=== PATIENT | male | born 1995 ===

== ENCOUNTER 2023-02-18 06:48 | Emergency (ER) | payer SELFPAY ==
[2023-02-18 07:53] LABS: Absolute Lymphocytes (CBC) 1.8 K/uL (0.7-4.9); Hematocrit 46.7 % (39.6-49.0); Lymphocytes % 27.1 % (15.3-44.8); MCV 82.4 fL (80-100); MPV 6.6 fL (7.6-11.3); RBC Red Blood Cell Count 5.67 M/uL (4.33-5.43)
--- NOTE | 2023-02-18 08:00 | RAD REPORT ---
EXAM DESCRIPTION: CT - Head Brain Wo Cont - 02/18/2023 7:40 am CLINICAL HISTORY: Headache COMPARISON: none TECHNIQUE: Computed axial tomography of the head was obtained. IV contrast was not requested. All CT scans are performed using dose optimization technique as appropriate and may include automated exposure control or mA/KV adjustment according to patient size. FINDINGS: An intracranial bleed is not seen The ventricles are normal in caliber No significant hypodense areas within the brain visualized No extra-axial fluid collection is noted. Fluid within the sinuses/ mastoids is not seen IMPRESSION: No acute intracranial abnormality is seen If patient's symptoms persist MRI of the brain would be recommended
--- NOTE | 2023-02-18 08:08 | RAD REPORT ---
EXAM DESCRIPTION: Jaspreet Angio02/18/2023 7:40 am CLINICAL HISTORY: Headache, neck pain and nausea COMPARISON: None TECHNIQUE: 95 cc Isovue 370 was administered intravenously. 3D MIP reconstruction performed All CT scans are performed using dose optimization technique as appropriate and may include automated exposure control or mA/KV adjustment according to patient size. FINDINGS: Poor opacification the right subclavian artery Common carotid, internal carotid and external carotid arteries normal caliber. Vertebral arteries normal caliber No dissection. No significant stenosis IMPRESSION: Poor opacification right subclavian artery. It is uncertain if this is due to technical factors and is not significant or if there is pathology. It is recommended that the patient have an u ltrasound of right subclavian artery for further evaluation Normal carotid and vertebral arteries NASCET criteria used. Mild 0-49% stenosis Moderate 50-69% stenosis Severe 70-99% stenosis
[2023-02-18 08:10] LABS: Potassium 4.2 mEq/L (3.5-5.1)
--- NOTE | 2023-02-18 08:10 | RAD REPORT ---
EXAM DESCRIPTION: CTHead angio02/18/2023 7:40 am CLINICAL HISTORY: Headache, neck pain and nausea COMPARISON: None TECHNIQUE: 95 cc Isovue [address] angiogram of the head was obtained. 3D MIPS reconstruction performed. All CT scans are performed using dose optimization technique as appropriate and may include automated exposure control or mA/KV adjustment according to patient size. FINDINGS: The basilar, internal carotid, anterior cerebral, middle cerebral and posterior cerebral a rteries are normal caliber An aneurysm is not seen A significant stenosis is not noted. IMPRESSION: Unremarkable exam
[2023-02-18 08:21] LABS: Protime INR 1.01
[2023-02-18] MEDS ORDERED: NA CHLORIDE 0.9% 1,000 ML ONE (08:35)
[2023-02-18] MEDS ORDERED: dexAMETHasone 10 MG/ML VIAL ONE (08:35)
[2023-02-18] MEDS ORDERED: KETOROLAC 30 MG/ML INJ ONE (08:35)
--- NOTE | 2023-02-18 09:21 | RAD REPORT ---
EXAM DESCRIPTION: USUpper Ext Artery Uni Bil02/18/2023 8:50 am CLINICAL HISTORY: Abnormal radiologic exam COMPARISON: CT angiogram February 18, 2023 FINDINGS: Right subclavian artery demonstrates a normal waveform No occlusion. No stenosis Grayscale, color and spectral analysis performed on all vessels IMPRESSION: Normal right subclavian artery
--- NOTE | 2023-02-18 09:26 | EDPHYS ---
Physician Documentation [facility] Name: Hugh Platt Age: 27 yrs Sex: Male : 1995 Arrival Date: 02/18/2023 Time: 06:48 Bed 7 Private MD: ED Physician Milan William HPI: 02/18 08:14 This 27 yrs old Male presents to ER via Ambulatory with complaints of Headache, rn Dizziness. 08:14 The patient complains of pain to the forehead. The patient describes the headache as rn aching. Onset: The symptoms/episode began/occurred 3 week(s) ago. Associated signs and symptoms: Pertinent positives: nausea, Pertinent negatives: altered mental status, dizziness, fever, neck stiffness, rash, vision changes, vision loss, weakness, vertigo. Severity of symptoms: At its worst the pain was moderate, in the emergency department the pain is unchanged. The symptoms are alleviated by nothing. the symptoms are aggravated by nothing. The patient has experienced similar episodes in the past. The patient has not recently seen a physician. Pt reports headache, forehead and behind eyes, for 3 weeks, no trauma or injury. NO focal neuro complaint. Is assoc with nausea. Has had headaches before but this lasting longer. Improves with OTC meds but keeps coming back. NO fever or recent illness. . Historical: - Allergies: 07:09 No Known Allergies; iw - Home Meds: 07:09 None [Active]; iw - PMHx: 07:09 None; iw - Immunization history:: Adult Immunizations up to date, Client reports receiving the 2nd dose of the Covid vaccine. - Social history:: Smoking status: Patient denies any tobacco usage or history of. - Family history:: not pertinent. - Hospitalizations: : No recent hospitalization is reported. ROS: 08:14 Constitutional: Negative for fever, chills, and weight loss, Eyes: Negative for injury, rn pain, redness, and discharge, Neck: Negative for injury, pain, and swelling, Cardiovascular: Negative for chest pain, palpitations, and edema, Respiratory: Negative for shortness of breath, cough, wheezing, and pleuritic chest pain, Abdomen/GI: Negative for abdominal pain, vomiting, diarrhea, and constipation, MS/Extremity: Negative for injury and deformity, Skin: Negative for injury, rash, and discoloration, Neuro: Negative for weakness, numbness, tingling, and seizure. Exam: 08:14 Constitutional: This is a well developed, well nourished patient who is awake, alert, rn and in no acute distress. Head/Face: Normocephalic, atraumatic. Eyes: Pupils equal round and reactive to light, extra-ocular motions intact. Neck: Trachea midline, no masses palpated, and no cervical lymphadenopathy. Supple, full range of motion without nuchal rigidity, or vertebral point tenderness. No Meningismus. Cardiovascular: Bradycardic, regular rhythm. No pulse deficits. Respiratory: No increased work of breathing, no retractions or nasal flaring. Abdomen/GI: Soft, non-tender Skin: Warm, dry MS/ Extremity: Pulses equal, no cyanosis. Neuro: Awake and alert, GCS 15, oriented to person, place, time, and situation. Cranial nerves II-XII grossly intact. Motor strength 5/5 in all extremities. Sensory grossly intact. Cerebellar exam normal. Normal gait. Vital Signs: 07:09 BP 131 / 81; Pulse 55; Resp 16; Pulse Ox 100% on R/A; iw 08:39 BP 121 / 86; Pulse 52; Resp 18; Pulse Ox 99% on R/A; ld1 [place] Coma Score: 09:23 Eye Response: spontaneous(4). Motor Response: obeys commands(6). Verbal Response: rn oriented(5). Total: 15. MDM: 06:57 Patient medically screened. rn 09:23 Differential diagnosis: migraine, neoplasm, subarachnoid bleed, tension headache, rn trigeminal neuralgia, vasomotor headache. Data reviewed: vital signs, nurses notes, lab test result(s), radiologic studies, CT scan, and as a result, I will discharge patient. Counseling: I had a detailed discussion with the patient and/or guardian regarding: the historical points, exam findings, and any diagnostic results supporting the discharge/admit diagnosis, lab results, radiology results, the need for outpatient follow up, to return to the emergency department if symptoms worsen or persist or if there are any questions or concerns that arise at home. Special discussion: I discussed with the patient/guardian in detail that at this point there is no indication for admission to the hospital. It is understood, however, that if the symptoms persist or worsen the patient needs to return immediately for re-evaluation. Based on the history and exam findings, there is no indication for further emergent testing or inpatient evaluation. I discussed with the patient/guardian the need to see the neurologist for further evaluation of the symptoms. I discussed with the patient/guardian the need to see the primary care provider for further evaluation of the symptoms. 02/18 07:41 Order name: CBC with Diff; Complete Time: 08:19 rn 02/18 07:41 Order name: Basic Metabolic Panel; Complete Time: 08:19 rn 02/18 07:41 Order name: Protime (+inr); Complete Time: 08:51 rn 02/18 07:41 Order name: Ptt, Activated; Complete Time: 08:51 rn 02/18 07:13 Order name: CT Head Brain wo Cont; Complete Time: 08:19 rn 02/18 07:13 Order name: CT Head Angio; Complete Time: 08:19 rn 02/18 07:13 Order name: CT Neck Angio; Complete Time: 08:19 rn 02/18 08:31 Order name: Upper Ext Artery Uni Brock; Complete Time: 09:23 EDMS 02/18 07:41 Order name: IV Start; Complete Time: 07:44 rn 02/18 08:00 Order name: Labs - recollect needed: recollect blue top/ under filled; Complete Time: eb 08:08 Administered Medications: 08:38 Drug: NS 0.9% IV 1000 ml Route: IV; Rate: 1 bolus; Site: right antecubital; ld1 08:38 Drug: Ketorolac IVP 30 mg Route: IVP; Site: right antecubital; ld1 08:38 Drug: Decadron - Dexamethasone IVP 10 mg Route: IVP; Site: right antecubital; ld1 Disposition Summary: 02/18/23 09:26 Discharge Ordered Location: Home rn Problem: an ongoing problem rn Symptoms: have improved rn Condition: Stable rn Diagnosis - Headache rn Followup: rn - With: Private Physician - When: As needed - Reason: Recheck today's complaints, Re-evaluation by your physician Discharge Instructions: - Discharge Summary Sheet rn - General Headache Without Cause rn - Migraine Headache rn Forms: - Medication Reconciliation Form rn - Thank You Letter rn - Antibiotic handicapper harness racing - Prescription Opioid Use rn Prescriptions: - Medrol (Michael) 4 mg Oral Tablets, Dose Pack - take 1 tablet by ORAL route as directed - follow package instructions; 1 rn packet; Refills: 0, Product Selection Permitted - orphenadrine citrate 100 mg Oral Tablet Sustained Release - take 1 tablet by ORAL route 2 times per day As needed; 20 tablet; Refills: 0, rn Product Selection Permitted Signatures: Dispatcher [employer] Yamilex Norwood RN RN iw Nieto, Roman, MD MD rn Botello, Elizabeth eb Sims, Lauren, RN RN ld1 Corrections: (The following items were deleted from the chart) 08:31 08:22 Lower Extremity Artery Uni [email or web address] ordered. EDMS EDMS
--- NOTE | 2023-02-18 09:26 | ER ---
Nurse's Notes [facility] Name: Hugh Platt Age: 27 yrs Sex: Male : 1995 Arrival Date: 02/18/2023 Time: 06:48 Bed 7 Private MD: Diagnosis: Headache Presentation: 02/18 07:08 Chief complaint: Patient states: headache, pain behind eyes, nausea since last night. iw 07:08 Method Of Arrival: Ambulatory iw 07:08 Acuity: AMANDA 3 iw 07:08 Coronavirus screen: At this time, the client does not indicate any symptoms associated iw with coronavirus-19. Ebola Screen: Patient negative for fever greater than or equal to 101.5 degrees Fahrenheit, and additional compatible Ebola Virus Disease symptoms Patient denies exposure to infectious person. Initial Sepsis Screen: Does the patient meet any 2 criteria? No. Patient's initial sepsis screen is negative. Does the patient have a suspected source of infection? No. Patient's initial sepsis screen is negative. Risk Assessment: Do you want to hurt yourself or someone else? Patient reports no desire to harm self or others. Onset of symptoms was February 18, 2023. Historical: - Allergies: 07:09 No Known Allergies; iw - Home Meds: 07:09 None [Active]; iw - PMHx: 07:09 None; iw - Immunization history:: Adult Immunizations up to date, Client reports receiving the 2nd dose of the Covid vaccine. - Social history:: Smoking status: Patient denies any tobacco usage or history of. - Family history:: not pertinent. - Hospitalizations: : No recent hospitalization is reported. Screenin:44 [facility] ED Fall Risk Assessment (Adult) History of falling in the last 3 months, ld1 including since admission No falls in past 3 months (0 pts). Abuse screen: Denies threats or abuse. Denies injuries from another. Nutritional screening: No deficits noted. Tuberculosis screening: No symptoms or risk factors identified. Assessment: 07:44 General: Appears in no apparent distress. comfortable, Behavior is calm, cooperative, ld1 appropriate for age. Pain: Complains of pain in face Pain does not radiate. Pain currently is 8 out of 10 on a pain scale. Quality of pain is described as throbbing. Neuro: Level of Consciousness is awake, alert, obeys commands, Oriented to person, place, time, situation. Cardiovascular: Capillary refill < 3 seconds Patient's skin is warm and dry. Respiratory: Airway is patent Respiratory effort is even, unlabored. GI: Abdomen is flat, non-distended. : No signs and/or symptoms were reported regarding the genitourinary system. EENT: No signs and/or symptoms were reported regarding the EENT system. Derm: No signs and/or symptoms reported regarding the dermatologic system. Musculoskeletal: No signs and/or symptoms reported regarding the musculoskeletal system. Vital Signs: 07:09 BP 131 / 81; Pulse 55; Resp 16; Pulse Ox 100% on R/A; iw 08:39 BP 121 / 86; Pulse 52; Resp 18; Pulse Ox 99% on R/A; ld1 [place] Coma Score: 09:23 Eye Response: spontaneous(4). Motor Response: obeys commands(6). Verbal Response: rn oriented(5). Total: 15. ED Course: 06:52 Patient arrived in ED. ag3 06:57 Milan William MD is Attending Physician. rn 07:09 Triage completed. iw 07:09 Arm band placed on. iw 07:33 Note: 22 IV inserted in right AC. ls3 07:41 CT Head Brain wo Cont In Process Unspecified. EDMS 07:41 CT Head Angio In Process Unspecified. EDMS 07:41 CT Neck Angio In Process Unspecified. EDMS 07:44 Patient has correct armband on for positive identification. Placed in gown. Bed in low ld1 position. Call light in reach. Side rails up X2. brand ambassador promotional model on. Pulse ox on. NIBP on. Door closed. Noise minimized. Warm blanket given. 07:44 No provider procedures requiring assistance completed. Inserted saline lock: 22 gauge ld1 in right antecubital area, using aseptic technique. Blood collected. 08:07 Luna Becker, ALO is Primary Nurse. ld1 08:10 Protime (+inr) Sent. ko1 08:10 Ptt, Activated Sent. ko1 08:12 Lab(s) recollected, by me, sent to lab. ko1 08:51 Upper Ext Artery Uni Brock In Process Unspecified. EDMS 09:33 IV discontinued, intact, bleeding controlled, No redness/swelling at site. Pressure ko1 dressing applied. Administered Medications: 08:38 Drug: NS 0.9% IV 1000 ml Route: IV; Rate: 1 bolus; Site: right antecubital; ld1 08:38 Drug: Ketorolac IVP 30 mg Route: IVP; Site: right antecubital; ld1 08:38 Drug: Decadron - Dexamethasone IVP 10 mg Route: IVP; Site: right antecubital; ld1 Medication: 07:44 VIS not applicable for this client. ld1 Outcome: 09:26 Discharge ordered by . rn 09:33 Discharged to home ambulatory. ko1 09:33 Condition: stable 09:33 Discharge instructions given to patient, Instructed on discharge instructions, follow up and referral plans. medication usage, Demonstrated understanding of instructions, follow-up care, medications, Prescriptions given X 2. 09:39 Patient left the ED. ko1 Signatures: Dispatcher [employer] EDYamilex Ta RN RN iw Milan William MD MD rn Siler, Lynzie ls3 Hawa Mendoza ag3 Luna Becker RN RN ld1 Dimple Moreland RN RN ko1 Corrections: (The following items were deleted from the chart) 07:14 07:08 Acuity: AMANDA 4 iw
[2023-02-18 09:46] VITALS: BP 121/86; O2SAT 99
== END 2023-02-18 09:39 | disposition home or self-care (01) ==
LOC: ER 06:48
DX: R51.9 Headache, unspecified (principal); R42 Dizziness and giddiness
CPT/HCPCS: 36415; 70450; 70496; 70498; 80048; 85025; 85610; 85730; 93931; 96374; 96375; 99285; J1100; J7030; Q9967